=== PATIENT | male | born 1970 | race Caucasian/White ===

== ENCOUNTER 2020-05-12 23:48 | Emergency (ER) | payer SELFPAY ==
[~2020-05-12] VITALS: Ht 165.1 cm; Wt 67.1 kg
--- NOTE | 2020-05-13 00:07 | NUR ---
PT [facility] PER [employer] AND [employer] PT WAS FOUND SLEEPING ON THE FREEWAY RAMP. WHEN PT APPROACHED, PT STARTED TO YELL AND BECAME AGGRESSIVE. PT PLACED IN BED 15 ON MONITOR AND PULSE OX.VSS.
[2020-05-13 00:09] LABS: BASOPHILS # (AUTO) 0.1 /CMM (0.0-0.2); BASOPHILS % (AUTO) 0.7 % (0.0-2.0); EOSINOPHILS % (AUTO) 1.9 % (0.0-6.0); HEMATOCRIT 43 % (39-51); HEMOGLOBIN 14.3 g/dL (13.5-17.5); LYMPHOCYTES # (AUTO) 2.2 /CMM (0.8-4.8); LYMPHOCYTES % (AUTO) 23.9 % (20.0-44.0); MEAN CORPUSCULAR HGB CONC 33 g/dl (31.0-36.0); MEAN CORPUSCULAR VOLUME 95 fL (80-96); MONOCYTES # (AUTO) 1.1 /CMM (0.1-1.30); MONOCYTES % (AUTO) 12.7 % (2.0-12.0); NEUTROPHILS # (AUTO) 5.5 /CMM (1.8-8.9); NEUTROPHILS % (AUTO) 60.8 % (43.0-81.0); PLATELET COUNT (AUTO) 265 /CMM (150-450); RED BLOOD CELL COUNT(AUTO) 4.54 MIL/uL (4.5-6.0)
[2020-05-13 00:18] LABS: CALCIUM, SERUM 9.2 mg/dL (8.5-10.1); CARBON DIOXIDE 30 mmol/L (21-32); CHLORIDE 106 mmol/L (98-107); GLUCOSE 99 mg/dL (74-106); POTASSIUM 3.7 mmol/L (3.5-5.1); SODIUM SERUM 143 mmol/L (136-145); UREA NITROGEN, BLOOD 25 mg/dL (7-18)
[2020-05-13 00:26] LABS: ALANINE AMINOTRANSFERASE 30 U/L (12-78); ALBUMIN 3.6 g/dL (3.4-5.0); ALCOHOL, BLOOD < 3 mg/dL (0-0); ALKALINE PHOSPHATASE 61 U/L (46-116); ASPARTATE AMINOTRANSFERASE 30 U/L (15-37); BILIRUBIN,DIRECT 0.2 mg/dL (0.0-0.2); BILIRUBIN,TOTAL 0.7 mg/dL (0.2-1.0); SALICYLATE 3.5 mg/dL (2.8-20.0); TOTAL PROTEIN, SERUM 7.1 g/dL (6.4-8.2)
[2020-05-13 00:27] LABS: ACETAMINOPHEN < 2 ug/ml (10-30)
[2020-05-13 01:46] LABS: APPEARANCE,URINE Clear (CLEAR); BILIRUBIN,URINE SMALL (NEGATIVE); BLOOD, URINE Large Ery/uL (NEGATIVE); COLOR,URINE Yellow (YELLOW); KETONES,URINE Negative (NEGATIVE); LEUKOCYTE ESTERASE ,URINE Negative (NEGATIVE); NITRITE, URINE Negative (NEGATIVE); PH,URINE 5.5 (5.0-8.0); PROTEIN,URINE Trace mg/dl (NEGATIVE); UGLUCOSE Negative (NEGATIVE); UROBILINOGEN,URINE 0.2 EU/dL (0.2)
[2020-05-13 02:26] LABS: RBC,URINE 21-50 /HPF (0-2)
[2020-05-13 02:27] LABS: BACTERIA,URINE Few /HPF (None Seen); MUCUS,URINE Few /LPF (None Seen); SQUAMOUS EPITHELIAL CELL,UR Few /HPF (None Seen); URINE AMORPHOUS URATE Moderate /HPF (None Seen)
--- NOTE | 2020-05-13 02:35 | NUR ---
pt noted to be verbally aggressive to staff. yelling and agitating patients nearby. attempted to calm patient down with non-pharm interventions: dim lights, provided warm blanket. pt remains yelling at staff. made aware. with orders for meds.
[2020-05-13] MEDS ORDERED: LORAZEPAM INJ 2 MG/ML VIAL ONE (02:42)
[2020-05-13] MEDS ORDERED: LORAZEPAM INJ 2 MG/ML VIAL IM ONE (03:00)
--- NOTE | 2020-05-13 04:03 | NUR ---
PT AWAKE IN BED, VSS.
--- NOTE | 2020-05-13 07:03 | NUR ---
PT REFUSING TO GIVE HIS FULL NAME
--- NOTE | 2020-05-13 08:00 | NUR ---
asleep in NO obvious distress Status quo
--- NOTE | 2020-05-13 10:00 | NUR ---
Pt Awake yelling loudly. Verbally abusive- using foul languege/cursing. Refusing any nusing intervention/food at this time
--- NOTE | 2020-05-13 12:17 | NUR ---
Pt able to answer simple questions ie name and bday. Re-evaluated by
--- NOTE | 2020-05-13 12:30 | NUR ---
Pt declined homeless fpc. Opts to go back to previous living condition. Signed homeless waiver Patient discharged to home in stable condition. Written and verbal after care instructions given. Patient verbalizes understanding of instruction.
[2020-05-13 12:31] VITALS: BP 120/74
--- NOTE | 2020-05-13 12:32 | NUR ---
Ambulatory, gait even and steady. Lunch provided pt took bagged lunch during discharge.
== END 2020-05-13 12:32 | disposition home or self-care (01) ==
LOC: ER 23:48 → EDBD 23:48 → ER 05-13 12:32
DX: F29 Unspecified psychosis not due to a substance or known physiological condition (principal); R45.1 Restlessness and agitation; Z59.0 Homelessness
CPT/HCPCS: 36415; 80048; 80076; 80305; 80307; 80329; 81001; 85025; 96372; 99285; G0480; J2060; 81000-TC